=== PATIENT | female | born 1950 | race Caucasian/White ===

== ENCOUNTER 2017-06-03 19:52 | Emergency (ER) | payer OTHER ==
[~2017-06-03] VITALS: Ht 160 cm; Wt 113.6 kg
[~2017-06-03 19:52] MED LIST: ASPI-973 PO; FLUO40CA12 PO; HYDR25TA4 PO; IRBE150T3 PO; MINERALS; Pulmicort INH; TLT2T PO; TRIA10.8 NS
[2017-06-03 20:09] VITALS: BP 130/73; PULSE 95; RESP 20; O2SAT 96
--- NOTE | 2017-06-03 21:12 | DRSVH ---
PROCEDURE: X-RAY RIGHT WRIST COMPLETE, MINIMUM THREE VIEWS ([id number]) INDICATIONS: pain TECHNIQUE: 4 views of the wrist were acquired. COMPARISON: None. FINDINGS: Bones: No fractures or dislocations. No suspicious bony lesions. Scaphoid view: No trauma found. Soft tissues: No suspicious soft tissue calcifications. IMPRESSION: No trauma found. 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 Dictated by: Wood Garnett M.D. on 06/03/2017 at 21:09 Approved by: Wood Garnett M.D. on 06/03/2017 at 21:10
--- NOTE | 2017-06-03 21:27 | DRSVH ---
PROCEDURE: X-RAY RIGHT ELBOW COMPLETE, MINIMUM THREE VIEWS ([id number]) INDICATIONS: pain TECHNIQUE: 3 views of the elbow were acquired. COMPARISON: None. FINDINGS: Bones: No dislocations. No suspicious bony lesions. There appears to be a nondisplaced radial head fracture slightly impacted. Soft tissues: Relatively large anterior and posterior joint effusion at the distal humerus elbow patrica nt effusion. No suspicious soft tissue calcifications. IMPRESSION: Anterior and posterior elbow joint effusion, slightly impacted radial head fracture. Dictated by: Wood Garnett M.D. on 06/03/2017 at 21:24 Approved by: Wood Garnett M.D. on 06/03/2017 at 21:25
--- NOTE | 2017-06-03 22:00 | ED.REPORT ---
HPI-General Illness Date of Service Jun 03, 2017 ED Provider: Sha Shell MD A 66 year old female with a history of hypertension and bilateral knee replacement presents to the ED complaining of right arm pain. The pt fell from stairs onto cement at 14:30 this afternoon. She fell onto her right arm and face , and may have briefly lost consciousness. She does remember the fall and everything after waking up. The pt is currently complaining of a headache and right arm pain, mostly localized in her elbow. The pain is described as sharp, nonradiating 9/10 pain in her right elbow that is exacerbated by movement. She denies neck pain or back pain. The pt takes one 81 mg aspirin daily. Nursing Notes Stated Complaint: FELL, HIT HEAD, RIGHT ARM PAIN Chief Complaint: Multiple Trauma/Fall Nursing Notes Reviewed: Yes Allergies: Coded Allergies: FLAKITA Inhibitors (Verified Adverse Reaction, Intermediate, COUGH, 06/03/17) Scheduled ([Minerals]) DAILY UNABLE TO VERIFY DOSE ([Pulmicort]) 180 MCG INH DAILY Aspirin (Aspirin) 81 Mg Tablet. 81 MG PO DAILY FLUoxetine-Expunged Drug, Do not Renew! (Prozac-Expunged Drug, Do not Renew!) 40 Mg Capsule 40 MG PO DAILY Hydrochlorothiazide-Expunged, Do Not Renew! (Hydrochlorothiazide-Expunged, Do Not Renew!) 25 Mg Tablet 25 MG PO DAILY Irbesartan-Expunged Drug, Do Not Renew! (Irbesartan-Expunged Drug, Do Not Renew! ) 150 Mg Tablet 300 MG PO DAILY Tolterodine-Expunged Drug, Do Not Renew! (Tolterodine-Expunged Drug, Do Not Renew!) 2 Mg Tablet 4 MG PO DAILY Triamcinolone Acetonide (Nasacort) 10.8 Ml [place] 10.8 ML NS DAILY General Time Seen by : 21:47 Chief Complaint Other (Right arm pain) Hx Obtained From: Patient Arrived By: Walk-in Sudden in Onset?: Yes Onset Occurred: 5 - 8 hours ago Symptom Duration: Since onset Caused by: Fall on ground Location: : Arm right Quality: Painful Radiation: : Does not radiate Severity: Maximum: Pain level 9 out of 10 Recent Healthcare: No recent doctor visit, No recent hospitalization Similar Sx Previous: No Past Medical History Past Medical History hypertension asthma colon polyps chronic constipation endometriosis depression Past Surgical History bilateral knee replacement carpal tunnel lap band Reports: Cholecystectomy Smoking History Unknown if Ever Smoker Social History Other Social History: Good social support Ambulatory Status Independent Review of Systems Full Review of Systems Constitutional: Denies: Chills, Fever Respiratory: Denies: Non-productive cough, Shortness of breath Cardiovascular: Denies: Chest pain GI: Denies: Abdominal pain, Nausea, Vomiting Musculoskeletal: Reports: Extremity pain, Denies: Back pain, Neck pain Skin: Denies Rash Neurologic: Reports: Change LOC, Headache Complete sys rev & neg: except as marked. Physical Exam General: Airway patent, GCS of 15 --- eyes (4), verbal (5), motor (6) HEENT: Right eye normal with pupils 4-3 and briskly reactive Left eye normal with pupils 4-3 and briskly reactive Midface stable, no malocclusion No nasal septal hematoma No obvious external signs of trauma to the scalp appreciated Neck: nontender, trachea midline Lungs: Clear to auscultation bilaterally, normal work of breathing Chest: Stable without tenderness, no crepitus Cardiac: Regular rate and rhythm Abdomen: Normal, non-tender, non-distended. Back: No bruising or step-offs. No cervical tenderness to palpation. No thoracic or lumbar tenderness to palpation. Skin: Warm and well perfused Extremities: Left upper extremity grossly normal, no deformity. Right lower extremity grossly normal, no deformity. Left lower extremity grossly normal, no deformity. Right upper extremity without snuffbox tenderness or wrist tenderness to palpation. Full range of motion of right wrist. Diffuse tenderness of the right elbow with an effusion. Range of motion limited secondary to pain. Neurovascular exam intact to the right upper extremity. No shoulder tenderness. Pulses: Palpable to bilateral upper and lower extremities Neuro: Motor and sensory exams grossly within normal limits; patient localizes to pain. Vital Signs Vital Signs Date Time Temp Pulse Resp B/P Pulse Ox O2 Delivery O2 Flow Rate FiO2 06/03/17 23:57 84 20 133/81 95 Room Air 06/03/17 20:09 36.6 95 20 130/73 96 Room Air Initial VS: Reviewed Interpretation & Diagnostics X-Ray Interpretation Xray Interpretation: IMPRESSION: Anterior and posterior elbow joint effusion, slightly impacted radial head fracture. Dictated by: Wood Garnett M.D. on 06/03/2017 at 21:24 Approved by: Wood Garnett M.D. on 06/03/2017 at 21:25 X-Ray Ordered: Elbow right Interpretation / Wet Read by: Interpret - Radiologist Xray Interpretation: IMPRESSION: No trauma found. 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 Dictated by: Wood Garnett M.D. on 06/03/2017 at 21:09 Approved by: Wood Garnett M.D. on 06/03/2017 at 21:10 X-Ray Ordered: Wrist right Interpretation / Wet Read by: Interpret - Radiologist CT Head Interpretation CONCLUSION: No acute intracranial abnormality. Interpretation / Wet Read by: Interpret - Radiologist Procedures Splint Application - Fx Mgt Splint Application- Fx Mgt: posterior long arm splint Time: 22:40 Procedure Performed by: ED physician, Sheet Metal Layout Mechanic, Under my direct supervis Precise Anatomic Location: right elbow Type of Immobilization: Sling Definitive Fracture Care: Splint Post-Procedure / Complications: Cap refill normal, Post splint vascular nl, Post splint neuro nl, Condition improved, Tolerated procedure well, Patient stable Re-Eval/Medical Decision Med Decision/Clinical Course In summary, 66-year-old female presenting to the ED after a clear mechanical fall earlier today. She has some right elbow pain, however no pain or tenderness in the shoulder or the wrist. She did hit her head and a have had a brief loss of consciousness; CT head negative for acute abnormality. The sensory and ED grossly within normal limits. X-ray of the patient's wrist demonstrates no acute fracture or abnormality. X-ray of the patient's right elbow demonstrates a joint effusion and a slightly impacted radial head fracture. Neurovascularly intact. Given the above, patient was placed in a posterior long-arm splint, instructed to follow up with orthopedics in the next several days; contact information given. Given the above, reasonable to discharge home with very careful return precautions, follow-up as per above. Also instructed to follow-up with her PCP in the next several days. Patient agreeable to the plan as stated, no further questions. Source of Hx: Old records Time of Eval: 22:56 Patient Status: Condition improved Re-Evaluation/Progress Note: Pt rechecked, who is comfortable. The diagnosis and plan for discharge are discussed. The pt understands and agrees with the plan. All questions are addressed at this time. Counseled Regarding: Diagnosis, Lab results, Need for follow-up, When/why to return to ED Discharge & Departure Primary Impression: Radial head fracture, closed Encounter type: initial encounter Fracture alignment: nondisplaced Laterality: right Qualified Code: S52.124A - Nondisplaced fracture of head of right radius, initial encounter for closed fracture Additional Impression: Head trauma Encounter type: initial encounter Qualified Code: S09.90XA - Unspecified injury of head, initial encounter Disposition: Home Discharge Condition All VS Reviewed: Yes Condition: Stable Patient Instructions: Elbow Fracture (ED), Splint Care (ED) Additional Instructions: Thank you for allowing us to be a part of your care. Take ibuprofen as needed for moderate pain. Take 1-2 Hugo every 6 hours as needed for severe pain. Do not drink, drive or consume acetaminophen while taking the Hugo. Wear the splint until you are seen by orthopedics in follow up. Call orthopedics and your primary care physician to arrange a follow up appointment in the next two to three days. Return to the emergency department if you develop any new or worsening symptoms such as increased pain, vision changes, focal weakness, numbness, headache, or if there is anything else of concern to you. Referrals: Janet Pinedo (PCP) Williams Drew MD Scribe Attestation Portions of this note were transcribed by Kaitlin Estrada. I, Dr. Shell personally performed the history, physical exam and medical decision-making; I reviewed and confirmed the accuracy of the information in the transcribed note. copies to: Janet Pinedo; Williams Drew MD, William B MD Jun 03, 2017 22:00 KAITLIN ESTRADA Jun 03, 2017 22:08
[2017-06-03] MEDS ORDERED: _HYDROcodone/APAP 5-325 mg Tablet PO PRN (23:40)
[2017-06-03 23:57] VITALS: BP 133/81; PULSE 84; RESP 20; O2SAT 95
--- NOTE | 2017-06-04 07:25 | DRSVH ---
PROCEDURE: CT BRAIN WITHOUT CONTRAST ([id number]) INDICATIONS: fall, LOC TECHNIQUE: Noncontrast 4.5 mm thick angled axial sections acquired from the foramen magnum to the vertex, with c oronal reformats. COMPARISON: None. FINDINGS: Image quality: Excellent. CSF spaces: Basal cisterns are patent. No extra-axial fluid collections. Ventricles are normal in size and shape. Brain: No midline shift. No intracranial masses or hemorrhage. [place]-white matter interface is norm al. Skull and face: Calvarium and visualized facial bones are intact, without suspicious lesions. Sinuses: Visualized sinuses and mastoids are clear. IMPRESSION: 1. No CT evidence of acute intracranial pathology. 2. There are no discrepancies with the preliminary report. Dictated by: Tim Miller M.D. on 06/04/2017 at 7:23 Approved by: Tim Miller M.D. on 06/04/2017 at 7:24
== END 2017-06-04 | disposition home or self-care (01) ==
LOC: SED 19:52
DX: S52.124A Nondisplaced fracture of head of right radius, initial encounter for closed fracture (principal); S06.9X1A Unspecified intracranial injury with loss of consciousness of 30 minutes or less, initial encounter; W10.8XXA Fall (on) (from) other stairs and steps, initial encounter; Y93.01 Activity, walking, marching and hiking; Y99.8 Other external cause status; Y92.89 Other specified places as the place of occurrence of the external cause; I10 Essential (primary) hypertension; J45.909 Unspecified asthma, uncomplicated; Z87.19 Personal history of other diseases of the digestive system; Z86.010 Personal history of colon polyps; Z96.653 Presence of artificial knee joint, bilateral; Z90.49 Acquired absence of other specified parts of digestive tract; Z79.82 Long term (current) use of aspirin; Z88.8 Allergy status to other drugs, medicaments and biological substances